=== PATIENT | female | born 1945 | race Caucasian/White ===

== ENCOUNTER 2017-11-05 08:37 | Emergency (ER) | payer OTHER ==
[~2017-11-05] VITALS: Ht 170.2 cm; Wt 81.7 kg
[2017-11-05] MEDS ORDERED: LISINOPRIL10 MG PO (08:44)
[2017-11-05] MEDS ORDERED: METFORMIN HCL500 MG PO (08:45)
[2017-11-05 09:27] LABS: HEMATOCRIT 40.5 % (37.0-47.0); MCH 30.5 pg (26.0-34.0); MCHC 34.6 g/dL (28.0-37.0); MCV 88.2 fL (80.0-100.0); RBC 4.59 mil/uL (4.20-5.00); RDW 15.6 % (10.5-14.5); WBC 10.3 thou/uL (4.0-11.0)
[2017-11-05 09:34] LABS: CALCIUM 9.1 mg/dL (8.5-10.1)
== END 2017-11-05 11:00 | disposition home or self-care (01) ==
LOC: ER 08:37
PROVIDERS: Emergency Medicine
DX: S02.2XXA Fracture of nasal bones, initial encounter for closed fracture (principal); S01.81XA Laceration without foreign body of other part of head, initial encounter; I10 Essential (primary) hypertension; E11.9 Type 2 diabetes mellitus without complications; Z88.2 Allergy status to sulfonamides; Z88.5 Allergy status to narcotic agent; W18.30XA Fall on same level, unspecified, initial encounter; Y93.89 Activity, other specified; Y92.89 Other specified places as the place of occurrence of the external cause; Y99.8 Other external cause status

== ENCOUNTER 2020-06-02 14:27 | Inpatient (IN) | payer OTHER ==
[~2020-06-02] VITALS: Ht 170.2 cm; Wt 87.1 kg
[~2020-06-02 14:27] MED LIST: LISINOPRIL10 MG PO; METFORMIN HCL500 MG PO
[2020-06-02 16:19] LABS: HEMATOCRIT 42.6 % (37.0-47.0); HEMOGLOBIN 14.6 gm/dL (12.0-15.0); MCH 31.2 pg (26.0-34.0); MCHC 34.2 g/dL (28.0-37.0); MCV 91.3 fL (80.0-100.0); RBC 4.67 mil/uL (4.20-5.00); RDW 14.8 % (10.5-14.5); WBC 9.6 thou/uL (4.0-11.0)
[2020-06-02 16:30] LABS: CALCIUM 9.3 mg/dL (8.5-10.1)
[2020-06-02 18:48] VITALS: BP 157/99
--- NOTE | 2020-06-02 19:35 | NUR ---
Assumed care of pt. at 1500. Pt. was trasferred from [facility]. She is in significant pain but does not let it show emotionally. She had an MRI preformed shortly after admission. Her pain medications do not seem to be effective. Fall precautions in place.
[2020-06-02 20:18] VITALS: BP 151/86
[2020-06-03 04:24] VITALS: BP 143/85
--- NOTE | 2020-06-03 06:10 | NUR ---
Pt. rested quietly at short intervals during the night when checked on during frequent rounds. Po pain meds given (see emar) for c/o pain to her left leg with some relief noted. Up to the bathroom with cane and stand by assistance.
[2020-06-03 06:26] LABS: FOLIC ACID 15.2 ng/mL (8.6-58.9)
[2020-06-03 08:37] VITALS: BP 145/97
[2020-06-03 16:56] VITALS: BP 113/96
[2020-06-03] MEDS ORDERED: PYRIDOSTIGMINE60 M1 PO (19:38)
[2020-06-03 19:43] VITALS: BP 150/89
--- NOTE | 2020-06-03 21:16 | NUR ---
PATIENT ALERT XS 4 HAS RESTED IN BED AND WATCHED TV. SAT ON SIDE OF BED AND ATE MEALS. PT WORKED WITH PT/OT THERAPIES. BLOOD SUGARS MONITORED.S/S ORDERED. PT STATES WANTS TO GO HOME BUT HER DAUGHTER WANTS HERE TO GO FOR REHAB BEFORE HOME.
--- NOTE | 2020-06-04 02:33 | NUR ---
RECIEVED CARE OF THIS PAITENT AT 1900. PATIENT ALERT AND ORIENTED WITH PERIODS OF CONFUSION AND FORGETFULLNESS. UP WITH ASSIST OF ONE AND WALKER. DENIES PAIN. ACCUCHECK 335, 9 UNITS LISPRO INSULIN GIVEN. SLEPT MOST OF NIGHT.
[2020-06-04 07:50] VITALS: BP 148/96
[2020-06-04] MEDS ORDERED: CYCLOBENZAPRINE5 MG PO (09:15)
[2020-06-04] MEDS ORDERED: TRAMADOL 50 MG50 MG PO (09:16)
[2020-06-04] MEDS ORDERED: PREDNISONE 5 MG5 M1 PO (09:17)
--- NOTE | 2020-06-04 10:46 | NUR ---
Assumed care of pt at 0700. Pt a&ox4. Pain controlled with prn pain meds. Call light within reach. Pt will discharge to home.
[2020-06-04 12:04] VITALS: BP 148/96
[2020-06-04 16:05] VITALS: BP 150/88
[2020-06-04 20:36] VITALS: BP 145/82
--- NOTE | 2020-06-05 03:05 | NUR ---
ASSESSED AT START OF SHIFT. PT IN BED DENIES PAIN. EVENING MEDS GIVEN AND PT BEATRIZ IT WELL. BLOODSUGAR CHECKED WITH INSULIN COVERAGE. PT UP WITH SBA TO THE BATHROOM. PT SLEPT THE REST OF THE SHIFT. FALL PREC IN PLACE AND CALL LIGHT IN REACH WILL CONT TO MONITOR.
[2020-06-05 08:39] VITALS: BP 153/93
--- NOTE | 2020-06-05 09:02 | NUR ---
ASSESSMENT: CM REVIEWED CHART AND SPOKE WITH PATIENT. PT REPORTS SHE LIVES AT HOME ALONE. PT REPORTS SHE HAS TWO STEPS TO ENTER THE HOME AND NO STEPS ONCE INSIDE. PT REPORTS SHE USES A CANE AT TIMES AND IS INDEPENDENT WITH ADLS. PT REPORTS SHE HAS NOT HAD HOME HEALTH IN THE PAST. PT REPORTS HER DAUGHTER LIVES CLOSE AND IS ABLE TO HELP HER IF NEEDED. PT HAS NO NEEDS FROM CM PRIOR TO DISCHARGE. PLANS ARE FOR PATIENT TO DISCHARGE HOME TODAY.
--- NOTE | 2020-06-05 09:55 | NUR ---
Assumed care of pt at 0700. Minimal pain at this time. Fall precautions in place. Will discharge to home today. Call light within reach. Will continue to monitor.
[2020-06-05 12:48] VITALS: BP 148/96
== END 2020-06-05 15:23 | disposition home or self-care (01) | DRG 552 ==
LOC: PRE 14:27 → 4S 15:15
PROVIDERS: Nurse Practitioner; ADMIT Hospitalist; ATTEND Hospitalist
DX: M54.42 Lumbago with sciatica, left side (principal); I10 Essential (primary) hypertension; E11.9 Type 2 diabetes mellitus without complications; E66.9 Obesity, unspecified; M48.061 Spinal stenosis, lumbar region without neurogenic claudication; Z68.30 Body mass index [BMI] 30.0-30.9, adult; Z79.899 Other long term (current) drug therapy; Z79.84 Long term (current) use of oral hypoglycemic drugs
CPT/HCPCS: 10102